=== PATIENT | male | born 1995 | race Caucasian/White ===

== ENCOUNTER 2016-10-29 01:40 | Emergency (ER) | payer BC ==
[2016-10-29 01:47] VITALS: RESP 16
--- NOTE | 2016-10-29 03:50 | EDPHY ---
H & P Stated Complaint: pt fell hit face on a step, lac above R eyebrow Time Seen by Provider: 10/29/16 03:07 HPI/ROS: HPI: The patient presents with R eyebrow laceration which occurred while going down a flight a stairs earlier tonight. He did not loose consciousness and does not have a headache, vomiting, changes in vision. He was drinking alcohol. He denies other injuries. REVIEW OF SYSTEMS Constitutional: No fever, no chills. Eyes: No discharge. Neurological: No headache. PMHx: healthy TRAUMA PHYSICAL General Appearance: Alert, no distress Head: Atraumatic Eyes: Pupils equal, round, reactive ENT, Mouth: No hemotypanium, no oral trauma Neck: Non- tender, trachea midline Respiratory: No chest wall tenderness, no subcutaneous air, lungs clear bilaterallty Cardiovascular: Regular rate and rhythm Abdomen: Abdomen is soft and non-tender, pelvis stable Skin: R eyebrow laceration 3 cm and gaping, frontalis muscle intact. Neurological: A&Ox3, GCS=15,normal motor function with 5/5 strength in all 4 extremities, normal sensory exam Source: Patient - Medical/Surgical History Hx Asthma: No Hx Chronic Respiratory Disease: No Hx Diabetes: No Hx Cardiac Disease: No Hx Renal Disease: No Hx Cirrhosis: No Hx Alcoholism: No Hx HIV/AIDS: No Hx Splenectomy or Spleen Trauma: No Other PMH: none - Social History Smoking Status: Light smoker Constitutional: Initial Vital Signs Temperature (C) 36.7 C 10/29/16 01:42 Heart Rate 94 10/29/16 01:42 Respiratory Rate 16 10/29/16 01:42 Blood Pressure 127/82 H 10/29/16 01:42 O2 Sat (%) 95 10/29/16 01:42 O2 Delivery Mode Room Air Allergies/Adverse Reactions: No Known Allergies Allergy (Unverified 10/29/16 01:47) Home Medications: Medication Instructions Recorded [facility] 10/29/16 Medical Decision Making Procedures: LACERATION REPAIR Procedure: Laceration repair. Verbal consent was obtained from the patient. The linear 3cm laceration on the R forehead was anesthetized using lidocaine. The wound was scrubbed, draped and explored to its base with a gloved finger. There were no deep structures involved. No tendon injury was identified. The wound was repaired with 5.0 nylon. The wound repair was simple. The procedure was performed by myself. Differential Diagnosis: This is a 21 yo M with R eyebrow laceration, superficial, occurred while walking down the stairs while drinking EtOH. No signs of closed head injury. Plan for laceration repair. Departure - Departure Disposition: Home, Routine, Self-Care Clinical Impression: Eyebrow laceration Condition: Good Instructions: Care For Your Stitches (ED), Stitches Removal (ED) Additional Instructions: You can return in 5 days to the emergency room to have your stitches taken out. Referrals: [facility] [Outside] - As per Instructions Stand Alone Forms: School Excuse
[2016-10-29 04:07] VITALS: BP 134/80; PULSE 84; TEMP 97.5; O2SAT 94
== END 2016-10-29 04:06 | disposition home or self-care (01) ==
PROC: 0HQ1XZZ Repair Face Skin, External Approach (ICD-10-PCS; principal; 2016-10-29)
DX: S01.121A Laceration with foreign body of right eyelid and periocular area, initial encounter (principal); F17.200 Nicotine dependence, unspecified, uncomplicated; W18.09XA Striking against other object with subsequent fall, initial encounter